=== PATIENT | female | born 1980 | race American Indian/Alaskan Native ===

== ENCOUNTER 2023-03-12 13:07 | Emergency (ER) | payer MEDICARE, MEDICAID ==
[2023-03-12] MEDS ORDERED: Sodium Chloride 0.9% 1,000 ML IV ONE (13:19)
[2023-03-12] MEDS ORDERED: Ondansetron 4 MG/2 ML SDV IVPUSH ONE (13:19)
[2023-03-12] MEDS ORDERED: Sodium Chloride 0.9% 10 ML Syringe FLUSH PRN (13:19)
[2023-03-12 13:37] LABS: BASOPHILS PERCENT AUTO 0.3 % (0.0-1.0); EOSINOPHILS PERCENT AUTO 2.2 % (1.0-3.0); HEMATOCRIT 38.5 % (37.0-47.0); HEMOGLOBIN 12.7 g/dL (12.0-16.0); LYMPHOCYTES PERCENT AUTO 20.9 % (20.5-50.1); MEAN CORPUSCULAR VOLUME 84.8 fL (80-100); MONOCYTES PERCENT AUTO 8.6 % (2-8); PLATELET COUNT,PLT 435 10^3/uL (150-450); RED BLOOD CELL COUNT 4.54 10^6/uL (4.2-5.4); WHITE BLOOD CELL COUNT,WBC 11.7 10^3/uL (5.0-10.0)
[2023-03-12 13:56] LABS: ALANINE AMINOTRANSFERASE,ALT 24 U/L (14-59); ALBUMIN 2.9 g/dL (3.4-5.0); ALKALINE PHOSPHATASE 111 U/L (46-116); ANION GAP 12.1 mEq/L (7-13); ASPARTATE AMNIOTRANSFERASE,AST 16 U/L (15-37); BILIRUBIN TOTAL 0.2 mg/dL (0.2-1.0); BLOOD UREA NITROGEN,BUN 13 mg/dL (7-18); BUN/CREATININE RATIO 11.9 (No establ ref range); C-REACTIVE PROTEIN 1.96 ng/dL (<=0.30); CALCIUM 8.2 mg/dL (8.5-10.1); CARBON DIOXIDE,CO2 27 mmol/L (21-32); CHLORIDE,CL 103 mmol/L (98-107); CREATININE 1.09 mg/dL (0.55-1.02); EST CRCL DRUG DOSING (CG) 58.06 mL/min; GLUCOSE RANDOM 92 mg/dL (70-99); POTASSIUM,K 4.1 mmol/L (3.5-5.1); SODIUM,NA 138 mmol/L (136-145)
[2023-03-12 14:00] LABS: A/G RATIO 0.71; ESTIMATED GFR 65 mL/min (>=60); LACTIC ACID 1.1 mmol/L (0.4-2.0)
[2023-03-12 14:13] LABS: CORONAVIRUS COVID-19 NAA NEGATIVE (NEGATIVE); INFLUENZA A NAA NEGATIVE (NEGATIVE); INFLUENZA B NAA NEGATIVE (NEGATIVE); RESPIRATORY SYNCYTIAL VIR NAA NEGATIVE (NEGATIVE)
[2023-03-12 14:22] LABS: TSH ULTRASENSITIVE 2.15 uIU/mL (0.36-3.74)
[2023-03-12] MEDS ORDERED: Take Home: Ondansetron 4 MG Tab.DIS, 5 Tab Pack PO ONE (14:29)
[2023-03-12 15:11] LABS: B-TYPE NATRIURETIC PEPTIDE,BNP 13 pg/ml (0-100)
[2023-03-12 15:16] LABS: INR 0.9 (0.9-1.2); PROTHROMBIN TIME 9.3 SEC (9.0-12.0); PTT,PARTIAL THROMBOPLSTIN TIME 29.1 SEC (22.0-34.0)
== END 2023-03-12 15:33 | disposition home or self-care (01) ==
LOC: DL.ED 13:07
DX: B34.9 Viral infection, unspecified (principal); R11.2 Nausea with vomiting, unspecified; Z20.822 Contact with and (suspected) exposure to COVID-19; Z79.899 Other long term (current) drug therapy; Z88.0 Allergy status to penicillin
CPT/HCPCS: 0241U; 36415; 80053; 82607; 83605; 83735; 83880; 84145; 84443; 84484; 85025; 85610; 85730; 86140; 86308; 86788; 93005; 93010; 96361; 96374; 99284; 99285-25; J2405; J3490; J7030; Q0162

== ENCOUNTER 2024-09-15 14:17 | Emergency (ER) | payer MEDICAID, MEDICARE ==
[2024-09-15] MEDS: Lidocaine 2% 20 ML MDV ONE (14:46)
== END 2024-09-15 15:00 | disposition home or self-care (01) ==
LOC: DL.ED 14:17
DX: G43.909 Migraine, unspecified, not intractable, without status migrainosus (principal); Z79.899 Other long term (current) drug therapy; Z88.0 Allergy status to penicillin
CPT/HCPCS: 64400; 99283; J2003

== ENCOUNTER 2024-11-01 10:25 | Emergency (ER) | payer MEDICAID ==
[2024-11-01] MEDS ORDERED: Sodium Chloride 0.9% 10 ML Syringe FLUSH PRN (10:35)
[2024-11-01 10:56] LABS: BASOPHILS PERCENT AUTO 0.3 % (0.0-1.0); EOSINOPHILS PERCENT AUTO 2.9 % (1.0-3.0); HEMATOCRIT 36.2 % (37.0-47.0); LYMPHOCYTES PERCENT AUTO 30.6 % (20.5-50.1); MEAN CORPUSCULAR HEMOGLOBIN 26.7 pg (27.0-34.0); MEAN CORPUSCULAR HGB CONC 33.1 g/dL (33.0-35.0); MEAN CORPUSCULAR VOLUME 80.4 fL (80-100); MONOCYTES PERCENT AUTO 9.1 % (2-8); NEUTROPHILS PERCENT AUTO 57.1 % (42.2-75.2); PLATELET COUNT,PLT 423 10^3/uL (150-450); WHITE BLOOD CELL COUNT,WBC 9.6 10^3/uL (5.0-10.0)
[2024-11-01 11:13] LABS: INR 0.9 (0.9-1.2); PROTHROMBIN TIME 9.7 SEC (9.0-12.0)
[2024-11-01 11:28] LABS: ALANINE AMINOTRANSFERASE,ALT 17 U/L (14-59); ALBUMIN 2.9 g/dL (3.4-5.0); ALKALINE PHOSPHATASE 99 U/L (46-116); ANION GAP 13.6 mEq/L (7-13); ASPARTATE AMNIOTRANSFERASE,AST 11 U/L (15-37); BILIRUBIN TOTAL 0.2 mg/dL (0.2-1.0); BLOOD UREA NITROGEN,BUN 11 mg/dL (7-18); BUN/CREATININE RATIO 11.7 (No establ ref range); CALCIUM 8.8 mg/dL (8.5-10.1); CARBON DIOXIDE,CO2 25 mmol/L (21-32); CHLORIDE,CL 106 mmol/L (98-107); CREATININE 0.94 mg/dL (0.55-1.02); GLUCOSE RANDOM 86 mg/dL (70-99); LIPASE 32 U/L (16-77); POTASSIUM,K 3.6 mmol/L (3.5-5.1); PROTEIN TOTAL,TP 6.6 g/dL (6.4-8.2); SODIUM,NA 141 mmol/L (136-145)
[2024-11-01 11:29] LABS: AMPHETAMINES,URINE NEGATIVE (NEGATIVE); BARBITURATES,URINE NEGATIVE (NEGATIVE); BENZODIAZEPINE,URINE NEGATIVE (NEGATIVE); MDMA (ECSTASY), URINE NEGATIVE (NEGATIVE); METHADONE,URINE NEGATIVE (NEGATIVE); METHAMPHETAMINES,URINE NEGATIVE (NEGATIVE); OPIATES,URINE NEGATIVE (NEGATIVE); OXYCODONE,URINE NEGATIVE (NEGATIVE); PHENCYCLIDINE,URINE NEGATIVE (NEGATIVE); TCA,URINE NEGATIVE (NEGATIVE)
[2024-11-01 11:30] LABS: A/G RATIO 0.78; ESTIMATED GFR 77 mL/min (>=60); ETHANOL BLOOD MEDICAL < 3 mg/dL (0)
[2024-11-01] MEDS: Iopamidol 755 Mg/ML 100 ML Bottle IVPUSH ONE (12:25)
== END 2024-11-01 14:45 ==
LOC: DL.ED 10:25
DX: R55 Syncope and collapse (principal); R41.0 Disorientation, unspecified; Z88.0 Allergy status to penicillin; Z79.899 Other long term (current) drug therapy
CPT/HCPCS: 36415; 70450; 70496; 70498; 80053; 80305; 80307; 82607; 82947; 83690; 83735; 84484; 85025; 85610; 93005; 99285; Q9967; 93010; 99284

== ENCOUNTER 2024-11-04 12:38 | Emergency (ER) | payer MEDICAID ==
[2024-11-04 10:52] LABS: BASOPHILS PERCENT AUTO 0.5 % (0.0-1.0); HEMATOCRIT 38.6 % (37.0-47.0); HEMOGLOBIN 12.6 g/dL (12.0-16.0); LYMPHOCYTES PERCENT AUTO 21.4 % (20.5-50.1); MEAN CORPUSCULAR HEMOGLOBIN 25.9 pg (27.0-34.0); MEAN CORPUSCULAR HGB CONC 32.6 g/dL (33.0-35.0); MEAN CORPUSCULAR VOLUME 79.4 fL (80-100); NEUTROPHILS PERCENT AUTO 66.1 % (42.2-75.2); PLATELET COUNT,PLT 515 10^3/uL (150-450); RED BLOOD CELL COUNT 4.86 10^6/uL (4.2-5.4); WHITE BLOOD CELL COUNT,WBC 8.2 10^3/uL (5.0-10.0)
[2024-11-04 11:10] LABS: HCG QUALITATIVE,SERUM NEGATIVE (NEGATIVE)
[2024-11-04 11:15] LABS: A/G RATIO 0.79; ALANINE AMINOTRANSFERASE,ALT 27 U/L (14-59); ALBUMIN 3.3 g/dL (3.4-5.0); ALKALINE PHOSPHATASE 102 U/L (46-116); ANION GAP 14.2 mEq/L (7-13); ASPARTATE AMNIOTRANSFERASE,AST 23 U/L (15-37); BILIRUBIN TOTAL 0.4 mg/dL (0.2-1.0); BLOOD UREA NITROGEN,BUN 11 mg/dL (7-18); BUN/CREATININE RATIO 12.2 (No establ ref range); CALCIUM 9.3 mg/dL (8.5-10.1); CARBON DIOXIDE,CO2 26 mmol/L (21-32); CHLORIDE,CL 103 mmol/L (98-107); ESTIMATED GFR 81 mL/min (>=60); GLUCOSE RANDOM 99 mg/dL (70-99); LIPASE 31 U/L (16-77); POTASSIUM,K 4.2 mmol/L (3.5-5.1); PROTEIN TOTAL,TP 7.5 g/dL (6.4-8.2); SODIUM,NA 139 mmol/L (136-145)
[2024-11-04] MEDS: Ondansetron 4 MG/2 ML SDV IVPUSH ONE (12:00)
[2024-11-04 12:22] LABS: FOLIC ACID 8.7 ng/mL (8.6-58.9); T4 FREE 0.87 ng/dL (0.76-1.46); TSH ULTRASENSITIVE 5.91 uIU/mL (0.36-3.74)
[~2024-11-04 12:38] MED LIST: Sodium Chloride 0.9% 10 ML Syringe FLUSH PRN
[2024-11-04] MEDS: Escitalopram 10 MG Tab PO ONE (12:46)
[2024-11-07 14:46] LABS: VITAMIN D 1,25 20.7 pg/mL (19.9-79.3)
== END 2024-11-04 13:00 | disposition home or self-care (01) ==
LOC: DL.ED 12:38
DX: R07.9 Chest pain, unspecified (principal); R53.83 Other fatigue; R11.0 Nausea; Z88.0 Allergy status to penicillin; Z79.899 Other long term (current) drug therapy
CPT/HCPCS: 36415; 80053; 82607; 82652; 82746; 83690; 83735; 84439; 84443; 84484; 84703; 85025; 93005; 93010; 96374; 99284; 99285; A9270; J2405

== ENCOUNTER 2024-11-21 22:17 | Emergency (ER) | payer MEDICAID ==
[2024-11-21 22:48] LABS: BASOPHILS PERCENT AUTO 0.3 % (0.0-1.0); EOSINOPHILS PERCENT AUTO 2.3 % (1.0-3.0); LYMPHOCYTES PERCENT AUTO 24.9 % (20.5-50.1); MONOCYTES PERCENT AUTO 7.8 % (2-8); NEUTROPHILS PERCENT AUTO 64.7 % (42.2-75.2); PLATELET COUNT,PLT 394 10^3/uL (150-450); RED BLOOD CELL COUNT 4.46 10^6/uL (4.2-5.4); WHITE BLOOD CELL COUNT,WBC 13.0 10^3/uL (5.0-10.0)
[2024-11-21 23:09] LABS: ALANINE AMINOTRANSFERASE,ALT 18.0 U/L (14-59); ASPARTATE AMNIOTRANSFERASE,AST 12.0 U/L (15-37); BILIRUBIN TOTAL 0.3 mg/dL (0.2-1.0); BLOOD UREA NITROGEN,BUN 11.0 mg/dL (7-18); CARBON DIOXIDE,CO2 26.0 mmol/L (21-32); CHLORIDE,CL 103.0 mmol/L (98-107); CREATININE 1.11 mg/dL (0.55-1.02); EST CRCL DRUG DOSING (CG) 55.85 mL/min; GLUCOSE RANDOM 129.0 mg/dL (70-99); POTASSIUM,K 3.5 mmol/L (3.5-5.1); PROTEIN TOTAL,TP 6.5 g/dL (6.4-8.2); SODIUM,NA 136.0 mmol/L (136-145)
[2024-11-21 23:10] LABS: A/G RATIO 0.76; ESTIMATED GFR 63.0 mL/min (>=60)
[2024-11-21 23:12] LABS: LACTIC ACID 1.9 mmol/L (0.4-2.0)
[2024-11-21 23:51] LABS: APPEARANCE,URINE CLEAR (CLEAR); GLUCOSE,URINE NEGATIVE (NEGATIVE); OCCULT BLOOD,URINE TRACE-INTACT (NEGATIVE)
[2024-11-22 00:04] LABS: EPITHELIAL CELLS,URINE FEW /HPF (NOT SEEN)
== END 2024-11-22 00:18 | disposition home or self-care (01) ==
LOC: DL.ED 22:17
DX: E86.0 Dehydration (principal); D50.0 Iron deficiency anemia secondary to blood loss (chronic); G43.909 Migraine, unspecified, not intractable, without status migrainosus; D35.2 Benign neoplasm of pituitary gland; Z88.0 Allergy status to penicillin; Z79.899 Other long term (current) drug therapy
CPT/HCPCS: 36415; 80053; 81001; 83605; 85025; 93010; 96360; 99284; A9270; J7030

== ENCOUNTER 2024-11-25 16:40 | Emergency (ER) | payer MEDICAID ==
[2024-11-25 16:57] LABS: BASOPHILS PERCENT AUTO 0.3 % (0.0-1.0); EOSINOPHILS PERCENT AUTO 3.2 % (1.0-3.0); LYMPHOCYTES PERCENT AUTO 24.9 % (20.5-50.1); MONOCYTES PERCENT AUTO 11.3 % (2-8); NEUTROPHILS PERCENT AUTO 60.3 % (42.2-75.2); PLATELET COUNT,PLT 397 10^3/uL (150-450); RED BLOOD CELL COUNT 4.33 10^6/uL (4.2-5.4); WHITE BLOOD CELL COUNT,WBC 11.1 10^3/uL (5.0-10.0)
[2024-11-25 17:17] LABS: ALANINE AMINOTRANSFERASE,ALT 16 U/L (14-59); ASPARTATE AMNIOTRANSFERASE,AST 12 U/L (15-37); BILIRUBIN TOTAL 0.2 mg/dL (0.2-1.0); BLOOD UREA NITROGEN,BUN 15 mg/dL (7-18); CARBON DIOXIDE,CO2 25 mmol/L (21-32); CHLORIDE,CL 104 mmol/L (98-107); CREATININE 0.87 mg/dL (0.55-1.02); EST CRCL DRUG DOSING (CG) 71.26 mL/min; GLUCOSE RANDOM 90 mg/dL (70-99); POTASSIUM,K 3.8 mmol/L (3.5-5.1); PROTEIN TOTAL,TP 6.3 g/dL (6.4-8.2); SODIUM,NA 136 mmol/L (136-145)
[2024-11-25 17:18] LABS: A/G RATIO 0.75; ESTIMATED GFR 84 mL/min (>=60); ETHANOL BLOOD MEDICAL < 3 mg/dL (0)
[2024-11-25 17:20] LABS: AMPHETAMINES,URINE NEGATIVE (NEGATIVE); BARBITURATES,URINE NEGATIVE (NEGATIVE); MDMA (ECSTASY), URINE NEGATIVE (NEGATIVE); METHAMPHETAMINES,URINE NEGATIVE (NEGATIVE); OPIATES,URINE NEGATIVE (NEGATIVE); OXYCODONE,URINE NEGATIVE (NEGATIVE); PHENCYCLIDINE,URINE NEGATIVE (NEGATIVE); TCA,URINE NEGATIVE (NEGATIVE)
== END 2024-11-25 18:51 | disposition home or self-care (01) ==
LOC: DL.ED 16:40
DX: R56.9 Unspecified convulsions (principal); Z88.0 Allergy status to penicillin; Z79.899 Other long term (current) drug therapy
CPT/HCPCS: 36415; 70450; 80053; 80305-QW; 80307; 83605; 83735; 85025; 93005; 93010; 99284; 99285

== ENCOUNTER 2025-03-31 15:37 | Emergency (ER) | payer MEDICAID ==
[2025-03-31] MEDS ORDERED: Sodium Chloride 0.9% 10 ML Syringe FLUSH PRN (15:45)
[2025-03-31 16:06] LABS: BASOPHILS PERCENT AUTO 0.3 % (0.0-1.0); EOSINOPHILS PERCENT AUTO 2.1 % (1.0-3.0); LYMPHOCYTES PERCENT AUTO 24.6 % (20.5-50.1); MONOCYTES PERCENT AUTO 10.0 % (2-8); NEUTROPHILS PERCENT AUTO 63.0 % (42.2-75.2); PLATELET COUNT,PLT 351 10^3/uL (150-450); RED BLOOD CELL COUNT 4.58 10^6/uL (4.2-5.4); WHITE BLOOD CELL COUNT,WBC 9.1 10^3/uL (5.0-10.0)
[2025-03-31 16:24] LABS: ALANINE AMINOTRANSFERASE,ALT 19 U/L (14-59); ASPARTATE AMNIOTRANSFERASE,AST 13 U/L (15-37); BILIRUBIN TOTAL 0.2 mg/dL (0.2-1.0); BLOOD UREA NITROGEN,BUN 10 mg/dL (7-18); CARBON DIOXIDE,CO2 27 mmol/L (21-32); CHLORIDE,CL 105 mmol/L (98-107); CREATININE 0.83 mg/dL (0.55-1.02); GLUCOSE RANDOM 84 mg/dL (70-99); POTASSIUM,K 3.8 mmol/L (3.5-5.1); PROTEIN TOTAL,TP 7.0 g/dL (6.4-8.2); SODIUM,NA 141 mmol/L (136-145)
[2025-03-31 16:26] LABS: A/G RATIO 0.79; ESTIMATED GFR 89 mL/min (>=60); ETHANOL BLOOD MEDICAL < 3 mg/dL (0)
[2025-03-31 17:02] LABS: APPEARANCE,URINE CLEAR (CLEAR); GLUCOSE,URINE NEGATIVE (NEGATIVE); OCCULT BLOOD,URINE TRACE-INTACT (NEGATIVE)
[2025-03-31 17:12] LABS: AMPHETAMINES,URINE NEGATIVE (NEGATIVE); BARBITURATES,URINE NEGATIVE (NEGATIVE); MDMA (ECSTASY), URINE NEGATIVE (NEGATIVE); METHAMPHETAMINES,URINE NEGATIVE (NEGATIVE); OPIATES,URINE NEGATIVE (NEGATIVE); OXYCODONE,URINE NEGATIVE (NEGATIVE); PHENCYCLIDINE,URINE NEGATIVE (NEGATIVE); TCA,URINE NEGATIVE (NEGATIVE)
[2025-03-31 17:13] LABS: SQUAMOUS EPITHELIAL CELLS,UR FEW /HPF (NOT SEEN)
== END 2025-03-31 18:00 | disposition home or self-care (01) ==
LOC: DL.ED 15:37
DX: R56.9 Unspecified convulsions (principal); D35.2 Benign neoplasm of pituitary gland; Z88.0 Allergy status to penicillin; Z79.85 Long-term (current) use of injectable non-insulin antidiabetic drugs; Z79.899 Other long term (current) drug therapy
CPT/HCPCS: 36415; 70450; 80053; 80305; 80307; 81001; 81025; 82947; 85025; 86140; 96361; 96365; 99284; 99285; J1953; J7030